=== PATIENT | female | born 1950 | race Caucasian/White ===

== ENCOUNTER 2017-02-28 17:54 | Emergency (ER) | payer OTHER ==
[~2017-02-28] VITALS: Ht 149.9 cm; Wt 45.4 kg
[2017-02-28] MEDS ORDERED: CENTANY AT1 EACH (18:16)
[2017-02-28] MEDS ORDERED: VERAPAMIL ER100 MG (18:17)
[2017-02-28] MEDS ORDERED: TOPROL XL25 M1 (18:17)
[2017-02-28] MEDS ORDERED: SULFAMETHOXAZOLE5 M1 (18:17)
[2017-02-28] MEDS ORDERED: FORTAMET1000 MG (18:17)
[2017-02-28] MEDS ORDERED: ENALAPRIL MALEAT5 MG (18:18)
[2017-02-28] MEDS ORDERED: GLIPIZIDE10 MG (18:18)
== END 2017-02-28 21:06 | disposition home or self-care (01) ==
LOC: ER 17:54
DX: R10.13 Epigastric pain (principal); R11.2 Nausea with vomiting, unspecified